=== PATIENT | male | born 1960 | race Caucasian/White ===

== ENCOUNTER → 2018-05-21 10:34 | Outpatient (CLI) | payer OTHER, SELFPAY ==
[2018-05-21 12:10] LABS: Absolute Lymphocyte Count 1.31 X10^3/ul (0.83-4.51); Basophil# 0.02 X10^3/uL; Basophil% 0.6 % (0-1); Eosinophil# 0.12 X10^3/uL; Eosinophils% 3.3 % (0-5); Hematocrit 43.2 % (40-54); Lymphocyte # 1.31 X10^3/ul (4.0); Lymphocyte % 36.1 % (19-41); Mean Corp Hgb Conc 34.7 g/gl (32-36); Mean Corpuscular Hgb 33.6 pg (27.0-32.0); Mean Corpuscular Volume 96.9 fL (80-94); Mean Platelet Vol. 11.2 fl (6.2-12.0); Monocyte# 0.21 X10^3/uL; Monocyte% 5.8 % (0-10); Neutrophil # 1.97 X10^3/uL (2.7-7.7); Neutrophil % 54.2 % (47-70); Platelet Count 159 K/mm3 (150-450); RBC Distribution Width SD 40.7 fl (35.1-43.9); Red Blood Count 4.46 M/mm3 (4.6-6.2); White Blood Count 3.6 K/mm3 (4.4-11.0)
[2018-05-21 12:11] LABS: POSITIVE COUNT NO; POSITIVE DIFFERENTIAL NO; POSITIVE MORPHOLOGY NO
[2018-05-21 12:37] LABS: ALB/GLOB Ratio 1.2 RATIO (0.9-2.4); AST(SGOT) 75 U/L (15-37); Alanine Aminotransfer ALT/SGPT 106 U/L (16-61); Albumin, Serum 3.8 g/dL (3.2-5.0); Alkaline Phosphatase 69 U/L (45-117); Anion Gap 9 (5-15); BUN 14 mg/dL (7-18); BUN/Creat Ratio 16.6 RATIO (10-20); Calcium,Total 8.5 mg/dL (8.5-10.1); Chloride 105 mmol/L (98-107); Cholesterol 208 mg/dL (200); Creatinine, Serum 0.84 mg/dL (0.70-1.30); EST Glomerular Filtration Rate 100 mL/min (>60); Est Glom Filt Rate - Afr Amer 121 mL/min (>60); Globulin 3.3 g/dL (2.2-4.2); Glucose 93 mg/dL (74-106); High Density Lipoprotein 55 mg/dL; PSA,Total - Annual Screen 0.59 ng/mL (0.00-4.00); Potassium 4.1 mmol/L (3.5-5.1); Protein, Total 7.1 g/dL (6.4-8.2); Sodium Level 142 mmol/L (136-145); Triglycerides 245 mg/dL; Very Low Density Lipoprotein 49 mg/dL (5-40)
[2018-05-21 13:14] LABS: Microalbumin,Random Urine < 5.0 mg/L (NO RANGE EST.)
== END ==
PROVIDERS: Family Provider Family Medicine; PCP Family Medicine; Referring Provider Nurse Practitioner Family
DX: Z00.00 Encounter for general adult medical examination without abnormal findings (principal); E78.5 Hyperlipidemia, unspecified; R79.89 Other specified abnormal findings of blood chemistry
CPT/HCPCS: 36415; 80053; 80061; 82043; 84153; 85025; G0103

== ENCOUNTER → 2019-03-29 14:33 | Outpatient (CLI) | payer OTHER, SELFPAY ==
--- NOTE | 2019-03-29 14:35 | CT_ITS ---
STUDY: CT PELVIS WITHOUT CONTRAST REASON FOR EXAM: Male, 58 years old. Sacroiliac joint pain RADIATION DOSAGE (If Supplied By Facility): CTDIvol = ( 28.21 ) mGy, DLP = ( 905.21 ) mGycm TECHNIQUE: Transaxial imaging of the pelvis was performed with oral contrast, and without intravenous administration of contrast material. Multiplanar coronal and sagittal images were reformatted. Individualized dose optimization techniques were used for this CT. COMPARISON: None. FINDINGS: Normal urinary bladder. Normal visualized small intestine. There is moderate stool in the colon. There is diverticulosis without diverticulitis. The appendix appears normal. There is no pelvic fluid. There is no pelvic mass lesion or lymphadenopathy. Normal visualized prostate gland. There is diffuse atherosclerotic calcification of the pelvic arteries. There are small bilateral inguinal hernias containing fat. There is degenerative change in the visualized levels of L4-L5 with a broad disc bulge moderate neural foramina narrowing facet arthropathy mild central stenosis. At L5-S1 there is a minimal broad disc bulge minimal neural foramina narrowing facet arthropathy without significant central stenosis. There is left lateral osteophytosis. There is a similar appearance of the bilateral SI joints with minimal osteophyte formation. There is degenerative change of the bilateral hip joints. There are nonspecific 2 small foci of sclerotic density within the right humeral head measuring up to [address]/Pelvis without IV Contrast IMPRESSION: Degenerative change of the bilateral hip joints. Nonspecific mild degenerative change of the SI joints. Degenerative changes lower lumbar spine Constipation diverticulosis the visualized diverticulitis. Electronically Signed: Charito Ahmadi MD at 15:44 EDT Tel , Service support ,
== END ==
PROVIDERS: Family Provider Family Medicine; PCP Family Medicine; Referring Provider Orthopaedic Surgery; Visit Provider Orthopaedic Surgery
DX: M46.1 Sacroiliitis, not elsewhere classified (principal)
CPT/HCPCS: 72192

== ENCOUNTER → 2019-04-19 14:35 | Outpatient (CLI) | payer OTHER, SELFPAY ==
--- NOTE | 2019-04-19 14:38 | RAD_ITS ---
STUDY: X-RAY - RIGHT WRIST REASON FOR EXAM: Male, 58 years old. Lump on posterior wrist. TECHNIQUE: 3 view(s) of the wrist were obtained. COMPARISON: None. FINDINGS: There is no evidence of fracture or dislocation. There are no significant degenerative changes. There are no radiodense foreign bodies. RAD/Wrist min 3 Views IMPRESSION: Negative radiographs of the right wrist. If there is concern for a soft tissue lesion, consider further evaluation with ultrasound or MRI. Electronically Signed: Ranjan Edgar, at 15:00 EDT Tel , Service support ,
== END ==
PROVIDERS: Family Provider Family Medicine; PCP Family Medicine; Referring Provider Family Medicine; Visit Provider Family Medicine
DX: M25.531 Pain in right wrist (principal)
CPT/HCPCS: 73110

== ENCOUNTER 2019-08-11 15:00 | Outpatient (RCR) | payer OTHER, SELFPAY ==
--- NOTE | 2019-05-17 15:26 | HP.PTEVAL ---
Patient's Visit Information ESPERANZA TIJERINA is a 59 year old M referred to Physical Therapy by ARNEL Ballard with a diagnosis of degenerative of lumbar intervertbral disc,disorder of sacrum,L-S radicular. Date of Evaluation: 05/17/19 Physical Therapist: Joe Magaña, PT, Cert MDT, OCS - Visit Plan Frequency: 2x /Week Duration: 4 Weeks Plan: PT INTERVENTIONS MODLITIES ,DLS ,POSTURAL STRENGTHENING,LE FLEXABLITY - Subjective Findings: This 59 y/o male presents to physical therapy with lumbar pain with radicular sypmtoms. Patient has had right lumbar radiculopathy many years. Patient intially see Dr Rosa did MRI reffered to pain management for 2 epidural injections which helped some. Then seen DR Wh[facility] did Catscan and not canditate for any type of surgery. [facility] recommends PT. Location of pain right SI region to lateral hip.Recommended injection SI which helped parathesia. Patient has a catch otherwise aches. Aggraveting factors bending,lifting walking,extended standing. Alleviating factors ice,walking. Denies parathesai/tingling. Coughing/sneezing -.Bowel/bladder-. Patient sleeping good. Patient pain affects housework tasks and ADL'S. Patient symptoms affects QOL. SOCIAL: single. VOCATION: retired - Pain Right Back Pain Intensity (Out of 10): 6 Pain Intensity Range: 10 - Objective POSTURE:mild foward posture. GAIT: reciprocal pattern. NEURO: denies parathesai/tingling,reflexes L3-4,L4-5,L5-S1 2/3. PALAPTION: tender SI. FLEXABLITY: hams mod tight. LUMBAR ROM: flexion min loss ,extension mod loss ,side glides min loss..pian with extension. MMT: quads/hams/hip/ankle 4/5 - Special Tests L/S Slump test left side: Negative L/S Slump test right side: Negative L/S Left Straight Leg Raise: Negative L/S Right Straight Leg Raise: Negative Lumbar Standing: Flexion - Mechanical Response: No effect Lumbar Standing: Flexion - Symptoms During Testing: Increases Lumbar Standing: Flexion - Symptoms After Testing: No worse Lumbar Standing: Extension - Mechanical Response: No effect Lumbar Standing: Extension - Symptoms During Testing: Abolishes Lumbar Standing: Extension - Symptoms After Testing: No worse Lumbar Standing: Right Side Glides - Mechanical Response: No effect Lumbar Standing: Right Side [place] - Symptoms During Testing: Increases Lumbar Standing: Right Side [place] - Symptoms After Testing: No worse Lumbar Standing: Left Side [place] - Mechanical Response: No effect Lumbar Standing: Left Side [place] - Symptoms During Testing: No effect Lumbar Standing: Left Side [place] - Symptoms After Testing: No effect Lumbar Lying: Flexion - Mechanical Response: No effect Lumbar Lying: Flexion - Symptoms During Testing: No effect Lumbar Lying: Flexion - Symptoms After Testing: No effect Lumbar Lying: Extension - Mechanical Response: No effect Lumbar Lying: Extension - Symptoms During Testing: Increases Lumbar Lying: Extension - Symptoms After Testing: No worse - Goals Goal 1:: Patient to be Independant with HEP Goal Time Frame: 4-6 Weeks Goal 2:: Patient to improve posture for function. Goal Time Frame: 4-6 Weeks Goal 3:: Patient to decrease lumbar pain by 50% or > to improve function. Goal Time Frame: 4-6 Weeks Goal 4:: Patient to improve lumbar ROM for function of recovery Goal Time Frame: 4-6 Weeks Goal 5:: Patient to improve Back owestry score by 5 points > to improve QOL. Goal Time Frame: 4-6 Weeks - Rehabilitation Potential Physical Therapy Diagnosis: This patient has lumbar pain SI joint pain better after injections pain with lumbar motion ,decrease lumbar ROM ,affects ability with ADL'S and housework tasks. Rehabilitation Potential: Good - Anticipated Interventions Patient/Client Instruction: Educate patient on: Condition, Plan of Care For the Purpose of:: To decrease pain, To increase ROM, To improve muscle performance and motor function, To increase tolerance to activity/condition/position, To improve ability of physical actions for home/community/work/leisure, To improve health of tissue, To decrease soft tissue restriction, To increase flexibility/ROM, To improve ability to perform tasks related to life management Therapeutic Exercise to Include: Strength training, Body mechanics, Postural training, Flexibilty training, Dynamic Lumbar Stabilization For the Purpose of:: To decrease pain, To increase ROM, To improve muscle performance and motor function, To increase tolerance to activity/condition/position, To improve ability of physical actions for home/community/work/leisure, To improve health of tissue, To decrease soft tissue restriction, To improve ability to perform tasks related to life management TENS: Yes IF ES: Yes Cryotherapy (ice pack, ice massage): Yes Thermo therapy (hot pack): Yes Ultrasound (thermal/non thermal): Yes For the Purpose of:: To decrease pain, To increase ROM, To improve nutrient delivery to tissue, To increase oxygenation perfusion, To improve health of tissue, To decrease soft tissue restriction Thank you for the opportunity to evaluate your patient. For Medicare and Medicare HMO plans, please review the plan of care and approve it. It will need to be FAXED BACK to us at [phone] for Medicare purposes. For Medicare only, by signing this I certify the plan of care. Please let me know if there are questions or concerns regarding this plan of care. Physician Signature: Date:
--- NOTE | 2019-08-11 15:31 | HP.PTDCSUM ---
HP - PT D/C Summary It has been my pleasure to treat ESPERANZA TIJERINA under orders from Macey Reina NP-C, for the diagnosis of degenerative of lumbar intervertbral disc,disorder of sacrum,L-S radicular for a total of 22 visit(s). Discharge Date: 08/11/19 Please see the following information for a summary of their discharge status. - Subjective Subjective: Doing well .. ready for d/c. Cotx to get occassional catch - Pain Right Back Pain Intensity (Out of 10): 0 - Overall Improvement % Improvement: 60 - Objective Objective/Function: POSTURE: mild foward posture\. GAIT: reciprocal pattern. MMT: quads/hams /hip 4/5. LUMBAR ROM: min loss flexion,extension min loss - Goals Goal 1:: Patient to be Independant with HEP Goal Progress: Goal Met Goal 2:: Patient to improve posture for function. Goal Progress: Goal Met Goal 3:: Patient to decrease lumbar pain by 50% or > to improve function. Goal Progress: Goal Met Goal 4:: Patient to improve lumbar ROM for function of recovery Goal Progress: Goal Met Goal 5:: Patient to improve Back owestry score by 5 points > to improve QOL. Goal Progress: Goal Met - Plan Plan: D/C TO GYM - D/C Information Discharge Comments: HEP If there are questions or concerns regarding this patient's physical therapy, please feel free to call me at [phone]. Thank you for the referral of this patient. Sincerely, Joe Magaña, PT, Cert MDT, OCS
== END 2019-08-11 19:00 | disposition home or self-care (01) ==
LOC: PT 15:00
PROVIDERS: Family Provider Family Medicine; PCP Family Medicine; Referring Provider Nurse Practitioner Family; Visit Provider Nurse Practitioner Family
DX: M51.37 Other intervertebral disc degeneration, lumbosacral region (principal); M47.817 Spondylosis without myelopathy or radiculopathy, lumbosacral region; M54.17 Radiculopathy, lumbosacral region; M48.07 Spinal stenosis, lumbosacral region; M46.96 Unspecified inflammatory spondylopathy, lumbar region; M53.3 Sacrococcygeal disorders, not elsewhere classified
CPT/HCPCS: 97014; 97110; 97162; G0283

== ENCOUNTER 2020-04-14 17:41 | Emergency (ER) | payer OTHER, SELFPAY ==
[2020-04-14 17:43] VITALS: BP 175/105; PULSE 72; RESP 16; TEMP 36.4; O2SAT 99; BMI 26.4
[2020-04-14 18:28] LABS: Anion Gap 8 (5-15); BUN 10 mg/dL (7-18); BUN/Creat Ratio 11.8 RATIO (10-20); Calcium,Total 9.3 mg/dL (8.5-10.1); Chloride 106 mmol/L (98-107); Creatinine, Serum 0.85 mg/dL (0.70-1.30); EST Glomerular Filtration Rate 98 mL/min (>60); Est Glom Filt Rate - Afr Amer 119 mL/min (>60); Estimated Creatinine Clearance 113.22 ml/min; Glucose 106 mg/dL (74-106); Potassium 3.9 mmol/L (3.5-5.1); Sodium Level 139 mmol/L (136-145)
[2020-04-14 18:34] VITALS: BP 166/109; PULSE 77; RESP 16
[2020-04-14 19:16] VITALS: BP 161/108
--- NOTE | 2020-04-14 19:16 | ED.DEP ---
ED Disposition - Plan for ED Patient: Instructions: ED Hypertension New Begin Treatment Prescriptions: Lisinopril 20 mg PO DAILY #30 tablet Referrals: Faraz Garibay MD [Primary Care Provider] -
--- NOTE | 2020-04-14 19:23 | ED.VISSUMM ---
- ER Visit Summary Date of Service: 04/14/20 Chief Complaint: Elevated blood pressure History of Present Illness: The patient is a 59 M presenting with elevated blood pressure. Patient states that he was not feeling well yesterday and took his blood pressure and it was 173/112. He repeated the blood pressure today and it was 169/117. He has a mild headache. He states this is not the worst headache of his life. He denies chest pain or shortness of breath. He states he used to take lisinopril and stopped this about 6 years ago after diet and exercise. He does not regularly check his blood pressure. Physical Examination: Vitals are stable. Blood pressure 175/105. Patient is afebrile. Alert no acute distress. HEENT exam is unremarkable. Neck is supple. Lungs are clear and equal bilaterally. Heart is regular rate and rhythm. Abdomen is soft nontender nondistended. Extremities are unremarkable. Skin is warm and dry. No focal neurologic deficit. Remainder of exam is unremarkable. Emergency Department Course and Treatment: Basic metabolic panel is unremarkable. Repeat blood pressure 166/109. Discussed with Dr. Matthews covering for Dr. Garibay. Patient will be started on lisinopril 20 mg daily. Advised to follow-up with Dr. Garibay for blood pressure recheck. Advised return to ED for worsening complaints. Disposition: Discharge home Impression: Hypertension This note was generated with [employer] dictation software. It may contain incorrect words, spelling, and punctuation that were not noted in review of the chart prior to signing ED Disposition - Plan for ED Patient: Instructions: ED Hypertension New Begin Treatment Prescriptions: Lisinopril 20 mg PO DAILY #30 tab Prescription Printed Referrals: Faraz Garibay MD [Primary Care Provider] -
[2020-04-14] MEDS: Lisinopril 20 MG Tablet PO (19:26)
== END 2020-04-14 19:27 | disposition home or self-care (01) ==
LOC: ED 18:31
PROVIDERS: Emergency Provider Emergency Medicine; PCP Family Medicine
DX: I10 Essential (primary) hypertension (principal); K21.9 Gastro-esophageal reflux disease without esophagitis
CPT/HCPCS: 80048; 99284; A4216

== ENCOUNTER → 2020-08-06 14:52 | Outpatient (CLI) | payer OTHER, SELFPAY ==
[2020-08-06 18:29] LABS: Anion Gap 10 (5-15); BUN 17 mg/dL (7-18); BUN/Creat Ratio 17.1 RATIO (10-20); Calcium,Total 9.3 mg/dL (8.5-10.1); Chloride 103 mmol/L (98-107); Cholesterol 206 mg/dL (200); EST Glomerular Filtration Rate 82 mL/min (>60); Est Glom Filt Rate - Afr Amer 99 mL/min (>60); Glucose 84 mg/dL (74-106); High Density Lipoprotein 60 mg/dL; PSA,Total - Annual Screen 0.43 ng/mL (0.00-4.00); Potassium 4.3 mmol/L (3.5-5.1); Sodium Level 138 mmol/L (136-145); Triglycerides 153 mg/dL; Uric Acid 5.2 mg/dL (3.5-7.2); Very Low Density Lipoprotein 31 mg/dL (5-40)
== END ==
PROVIDERS: PCP Family Medicine; Referring Provider Family Medicine; Visit Provider Family Medicine
DX: I10 Essential (primary) hypertension (principal); M10.9 Gout, unspecified; Z12.5 Encounter for screening for malignant neoplasm of prostate
CPT/HCPCS: 36415; 80048; 80061; 84153; 84550; G0103

== ENCOUNTER 2020-09-09 21:02 | Emergency (ER) | payer OTHER, SELFPAY ==
[2020-09-09] VITALS (8 sets, daily range): BP systolic 152–234; BP diastolic 106–162; PULSE 87–114; RESP 12–28; TEMP 36; O2SAT 84–99; BMI 26.9
--- NOTE | 2020-09-09 21:10 | ED.RN ---
RN CALLED FOR EKG, NO OLD EKGS IN MUSE
--- NOTE | 2020-09-09 22:08 | RAD_ITS ---
We are attempting to reach an attending provider to discuss findings. An addendum with communication details will be sent when the communication is complete. SOB AND CHEST PAIN, PT STATES Tquot;IT FEELS LIKE WHEN I HAD A COLLAPSED LUNG.Tquot;- HX RIGHT LUNG COLLAPSE IN THE PAST, HTN EXAMINATION/TECHNIQUE: XR Chest 2 Views: COMPARISON: February 02, 2017 FINDINGS: LINES/DEVICES: None. LUNGS: Large right-sided pneumothorax with complete collapse of the lower lobe and in complete collapse of the upper lobe. The left lung is clear. MEDIASTINUM AND CARDIOVASCULAR STRUCTURES: Cardiac silhouette not enlarged. Central airways and mediastinal contour are unremarkable. BONES AND SOFT TISSUES: Unremarkable. RAD/Chest PA and Lateral IMPRESSION: Large right-sided pneumothorax as discussed at 2223 Reported and signed by: Charito Morales DO Electronically Signed: Charito Morales DO at 22:22 EST Tel , Service support ,
--- NOTE | 2020-09-09 22:46 | ED.VIS.GEN ---
History of Present Illness Chief Complaint: Shortness of Breath Informant: Patient Onset: Today Narrative: Patient is a 60-year-old male with history of spontaneous pneumothorax presenting with sudden onset of right-sided chest discomfort and shortness of breath. Patient dates he was watching football around 3 PM when he suddenly had the symptoms. It felt like the last time he had a pneumothorax. Patient describes chest pain is right-sided and sharp. Is worse when he tries to take a deep breath. His symptoms persisted so he decided to come to emergency room to be evaluated further. He states he is otherwise been feeling well. He has no other complaints at this time. Past Medical History - Allergies and Home Meds Allergies/Adverse Reactions: Allergies No Known Allergies Allergy (Verified 09/09/20 21:06) Primary Care Physician: Faraz Garibay MD [Primary Care Provider] - Past Medical History: - - Hypertension, GERD, history of pneumothorax Surgical History: noncontributory Smoking Status: Never smoker Alcohol: Heavy Review of Systems General: Denies: Chills, Fever, Sweats Eyes: Denies: Visual changes - bilaterally, Diplopia ENT: Denies: Rhinorrhea, Sore throat Cardiovascular: Reports: Chest pain - Right-sided. Denies: Palpitations Respiratory: Reports: Dyspnea. Denies: Cough, Dyspnea on exertion Gastrointestinal: Denies: Abdominal pain, Nausea, Vomiting, Diarrhea, Melena, Hematochezia Genitourinary: Denies: Dysuria, Hematuria, Frequency Musculoskeletal: Denies: Back pain, Extremity Pain Skin: Denies: Rash, Wounds Neurological: Denies: Headache, Weakness, Numbness Physical Exam Vital Signs/Narrative: Vital Signs Temp Pulse Resp BP Pulse Ox 09/09/20 21:04 96.8 F L 95 18 185/125 H 93 Inital Vital Signs reviewed: Yes General: Well nourished, Well developed, No Acute Distress Head: Normocephalic, Atraumatic Eyes: Perrl, EOMI ENT: Moist mucous membranes, No rhinorrhea Neck: Supple, Nontender Cardiovascular: Regular rate, Regular rhythm, No murmurs Respiratory: No distress, Chest nontender, Diminished - Right-sided Abdomen: Soft, Nontender, Nondistended, Normal bowel sounds Back: Nontender, Normal Inspection Extremities: Nontender, No edema Skin: Normal color, No rash Neurological: Alert, Oriented x3, Cranial nerves II-XII grossly intact, Normal Strength, Normal Sensation Psychological: Normal affect, Normal Mood Diagnostic/Tx/Re-eval Chest X-Ray - ED: 2 View, Read by ED Physician, - - Right pneumothorax Clinical Impression(s) from Imaging Studies Chest X-Ray 09/09/20 22:08 IMPRESSION: Large right-sided pneumothorax as discussed at 2223 Reported and signed by: Charito Morales DO Electronically Signed: Charito Morales DO at 22:22 EST Tel , Service support , ADDENDUM: 09/09/20 2234 IMPRESSION: Large right-sided pneumothorax as discussed at 2223 Reported and signed by: Charito Morales DO N.B. : The above information has been verbally conveyed by Charito Morales DO to Jocelyn KeonDO bassam, on 09/09/2020 22:28:01 (ET). Electronically Signed: Charito Morales DO at 22:22 EST Tel , Service support , Chest X-Ray 09/09/20 23:37 IMPRESSION: Interval placement of right-sided chest tube with reexpansion of the right lung. No definite pneumothorax is visualized on this study. There is atelectasis seen within the right lung base and the right midlung at 0000 Reported and signed by: Charito Morales DO Electronically Signed: Charito Morales DO at 23:59 EST Tel , Service support , - Medical Decision Making Evaluated for sudden onset of pleuritic chest pain on the right as well as associated shortness of breath. Chest x-ray shows pneumothorax. This appears to be spontaneous pneumothorax is uncomplicated. Patient is not significantly hypoxic. He is not have any tension physiology. Pigtail chest tube is placed. See procedure note. Patient tolerated this well. He is given oxycodone the ER for pain control afterwards. He is ambulated without any hypoxia and does feel improved with his breathing. Did discuss the case with pulmonology on-call, Dr. Gregorio, who will come to see him in the office but likely patient will need to return to the emergency room on Thursday for removal. Patient is agreeable with this. He is also started to follow-up with his primary care doctor. He is given a course of oxycodone for pain control at home. Patient is counseled on signs and symptoms requiring return to the emergency room. Patient verbalizes agreement and understand this plan. Patient discharged home in stable and improved condition. Procedures Procedure(s): Chest tube placement. Informed consent obtained. Patient preoxygenated and placed on continuous telemetry, oximetry and end-tidal CO2 monitoring. Procedural sedation performed with ketamine, 1 mg/kg. This is slow push over 2 minutes. Patient did have a mild episode of apnea with a slight desaturation to 88% but quickly resolved with jaw thrust. Once oxygenation stabilized, pneumo dart kit used to place 8 Martiniquais chest tube. Fifth intercostal space mid axillary line using anatomical landmarks. Reanesthetized with lidocaine. Small incision with scalpel made and then needle introduced into the pleura with negative pressure and syringe. Once air was aspirated catheter was placed over the needle. Needle removed and flutter valve connected to catheter. Condensation noted in the tubing and patient had improved right-sided breath sounds. Catheter sutured to chest. Repeat chest x-ray shows reinflation of the lungs with proper placement of the catheter. Patient tolerated procedure well without any immediate complications. ED Disposition - Plan for ED Patient: Disposition: Home or Assisted Living Diagnosis: Spontaneous pneumothorax Instructions: ED Pneumothorax, Spontaneous, Chest Tube Adult Prescriptions: Oxycodone HCl/Acetaminophen [Percocet 5/325] 1 tab PO Q6H PRN PRN 4 Days #15 tab PRN Reason: Pain Prescription Printed Referrals: Faraz Garibay MD [Primary Care Provider] - Carlitos Gregorio MD [STAFF PHYSICIAN] - Additional Instructions: If you cannot be seen by your primary care doctor/lung doctor by Thursday to have the chest tube removed, please return the emergency room and we will remove it for you. Please return the emergency room if you develop worsening pain or difficulty breathing.
--- NOTE | 2020-09-09 23:07 | EKG12_ITS ---
Test Reason : SOB/CP Blood Pressure : / mmHG Vent. Rate : 092 BPM Atrial Rate : 092 BPM P-R Int : 138 ms QRS Dur : 084 ms QT Int : 356 ms P-R-T Axes : 095 062 089 degrees QTc Int : 440 ms Normal sinus rhythm Normal ECG Confirmed by TAVON FONTANA, ALKA ([id number]), story editor EDILMA DARLING ([id number]) on 09/12/2020 11:01:34 AM Referred By: Confirmed By:ALKA MONTES DE OCA MD
[2020-09-09] MEDS: Ondansetron 4 MG/2 ML Vial IV (23:10)
[2020-09-09] MEDS: Ketamine HCl 500 MG/5 ML Vial 98 MG IV (23:14)
--- NOTE | 2020-09-09 23:37 | RAD_ITS ---
s/p rt sided chest tubehx of pneumothorax EXAMINATION/TECHNIQUE: XR Chest 1 View: COMPARISON: September 09, 2020 FINDINGS: LINES/DEVICES: There is been interval placement of a right-sided chest tube with the tip overlying the right medial eighth posterior rib. l LUNGS: Interval improvement of pneumothorax. I do not see a significant persistent pneumothorax. There is atelectasis in the right lung base and right midlung. The left lung is clear. No pneumothorax. MEDIASTINUM AND CARDIOVASCULAR STRUCTURES: Cardiac silhouette not enlarged. Central airways and mediastinal contour are unremarkable. BONES AND SOFT TISSUES: Unremarkable. RAD/Chest 1 View (Portable) IMPRESSION: Interval placement of right-sided chest tube with reexpansion of the right lung. No definite pneumothorax is visualized on this study. There is atelectasis seen within the right lung base and the right midlung at 0000 Reported and signed by: Charito Morales DO Electronically Signed: Charito Morales DO at 23:59 EST Tel , Service support ,
[2020-09-10 00:12] VITALS: BP 151/110; PULSE 90; RESP 18; O2SAT 96
[2020-09-10] MEDS: oxyCODONE 5 MG Tablet PO (00:12)
[2020-09-10 00:16] VITALS: O2SAT 94
[2020-09-10 00:41] VITALS: PULSE 86; RESP 20; O2SAT 96
== END 2020-09-10 01:09 | disposition home or self-care (01) ==
PROVIDERS: Emergency Provider Emergency Medicine; PCP Family Medicine
DX: J93.83 Other pneumothorax (principal); I10 Essential (primary) hypertension; K21.9 Gastro-esophageal reflux disease without esophagitis; Z79.899 Other long term (current) drug therapy
CPT/HCPCS: 32551; 71045; 71046; 93005; 96374; 99152; 99284; J7030; A4216; J2405

== ENCOUNTER 2020-09-10 12:41 | Emergency (ER) | payer OTHER, SELFPAY ==
[2020-09-09 21:04] VITALS: BMI 26.9
[2020-09-10 12:42] VITALS: BP 149/93; PULSE 74; RESP 18; TEMP 35.8; O2SAT 97; BMI 27.5
--- NOTE | 2020-09-10 13:10 | RAD_ITS ---
STUDY: X-RAY CHEST REASON FOR EXAM: Male, 60 years old. Chest pain/pressure TECHNIQUE: 2 AP portable views, inspiration and expiration COMPARISON: 09/09/2020 FINDINGS: The previously noted small caliber right-sided chest tube has been since the previous study. On the expiration view, there is recurrence of a right pneumothorax. There is approximately 2.5 cm of space between the superior edge of the lung in the peritoneal surface there is no mediastinal shift. The pneumothorax is smaller on the inspiration view measuring 1.5 cm between the superior edge of the lung and the pleural surface The lungs are otherwise clear and expanded. There is no demonstrated pleural abnormality. Normal size heart. Normal mediastinum and juan antonio. Normal visualized pulmonary arteries. Normal visualized aortic arch and descending thoracic aorta. There are diffuse degenerative changes of the visualized thoracic spine. Normal visualized ribs, clavicles, and shoulders. There is no demonstrated abnormality of the visualized soft tissue structures of the upper abdomen. RAD/Chest Insp/Exp 2 View IMPRESSION: Recurrence of the small right pneumothorax since the previous study after chest tube removal. No mediastinal shift. Aside from the pneumothorax, lung dumont are clear without evidence of a superimposed process N.B. : The above information has been verbally conveyed by Jg Vogt MD to Abram Dumont MD, on 09/10/2020 13:25:24 (ET). Electronically Signed: Jg Vogt MD at 13:28 EST , Service support ,
[2020-09-10 15:29] VITALS: BP 153/97; PULSE 73; RESP 17; O2SAT 97
[2020-09-10] MEDS: Lidocaine 1% (20 ml mdv) 20 ML Vial INFILT (15:33)
--- NOTE | 2020-09-10 15:41 | ED.DCSUM_ITS ---
History of Present Illness Chief Complaint: Other, Pain/Inj Detail of Chief Complaint: Thoracostomy tube/Heimlich valve fell out Informant: Patient Onset: Hours Context: Sudden Onset Quality: Not applicable Location: Not applicable Current Severity: - - Unknown Maximum Severity: - - Unknown Worsened by: Unknown Relieved by: Nothing Associated Symptoms: No shortness of breath or chest pain Narrative: Patient 60-year-old male who was seen last evening for spontaneous pneumothorax. Patient states this is his second spontaneous pneumothorax. He was told he has a bleb which caused his initial spontaneous pneumothorax. He presents because t he tube fell out. He has no other complaints. He was referred to pulmonology. He was not referred to cardiothoracic surgery Prior similar symptoms: Yes Recent Illness/Hospitalization: Yes - Past Medical History (1) Spontaneous pneumothorax Status: Acute Past Medical History - Allergies and Home Meds Allergies/Adverse Reactions: Allergies No Known Allergies Allergy (Verified 09/10/20 13:10) Primary Care Physician: Faraz Garibay MD [Primary Care Provider] - Harjinder Fritz MD [NON-STAFF] - 3-5 Days Prior records reviewed: Yes Surgical History: noncontributory Lives: Spouse/ Significant Other Smoking Status: Never smoker Alcohol: None Drugs: None Review of Systems General: Denies: Chills, Fever, Malaise, Subjective, Sweats Cardiovascular: Denies: Chest pain, Palpitations, Heart racing Respiratory: Denies: Dyspnea, Cough, Sputum, Dyspnea on exertion Gastrointestinal: Denies: Nausea, Vomiting Musculoskeletal: Denies: Myalgias, Arthralgias Skin: Denies: Rash, Wounds Hematologic: Denies: Easy bruising, Easy bleeding Allergy: Denies: Uticaria, Swelling of the mouth, Swelling of the tongue Physical Exam Vital Signs/Narrative: Vital Signs Temp Pulse Resp BP Pulse Ox 09/10/20 15:29 73 17 153/97 H 97 09/10/20 12:42 96.5 F L 74 18 149/93 H 97 Inital Vital Signs reviewed: Yes General: Well nourished, Well developed, No Acute Distress Head: Normocephalic, Atraumatic Eyes: Perrl, EOMI. Negative for: Pale conjunctiva, Scleral icterus ENT: Moist mucous membranes Neck: Supple, Nontender, No lymphadenopathy, No JVD, - - He has midline. There is no deviation. There is no inspiratory expiratory stridor. There is no JVD. Cardiovascular: Regular rate, Regular rhythm, No murmurs, Normal S1, Normal S2 Respiratory: No distress, CTA bilaterally, Chest tenderness - Tenderness over insertion site and there is no subcutaneous air or crepitus. Negative for: Chest nontender Abdomen: Soft, Nontender, Nondistended Extremities: Nontender, No edema Skin: Normal color, No rash Neurological: Alert, Oriented x3, Cranial nerves II-XII grossly intact, Normal Strength, Normal Sensation Psychological: Normal affect Diagnostic/Tx/Re-eval Chest X-Ray - ED: Read by ED Physician, - - Inspiratory expiratory film reveals a apical abscess that was not noted after placement of thoracostomy tube last evening. Chest x-ray after placement of the thoracostomy tube reveals expansion and r esolution of pneumothorax however 80% of the tube is extrapleural and only 20% of the tube is intrapleural. Concerned this may dislodge with movement since patient is very muscular. Chest x-ray after placement of second thoracostomy tube reveals the tube is in proper position and lung is expanded. 09/10/20 13:10 Chest Insp/Exp 2 View [RAD] Routine 09/10/20 15:55 Chest 1 View (Portable) [RAD] Stat 09/10/20 17:27 Chest 1 View (Portable) [RAD] Stat - Medical Decision Making Inspiratory expiratory film was obtained. Patient does have a small apical pneumothorax which was not noted after tube was placed last evening. Since this has reaccumulated with the tube being out for only 3060 minutes will reinsert thoracostomy tube with Heimlich valve. Patient understands risk benefits and necessity of procedure/tube. Procedures Procedure(s): Patient was prepped a sterile manner. There was Nestabs 1% lidocaine for local infiltration. Small and incision was made with 11 blade. Using the contents of the kit a thoracostomy tube was placed anteriorly between the lateral to midclavicular line on the right. Air was aspirated without difficulty. The tube was placed without difficulty and sutured in place. Post procedure x-ray is pending. Chest x-ray reveals only 20% of the tube is in the pleural cavity. There is expansion of the lung with no evidence of residual pneumothorax. However concerned this may become dislodged. Patient was informed of this and consented verbally for repeat thoracostomy tube. Anterior approach was undertaken midclavicular line third fourth intercostal space. Patient was prepped draped sterile manner. The area was Nestabs. Small mukul in the skin was made using 11 blade. Tube was placed without difficulty. Chest x-ray is obtained to confirm proper position. ED Disposition - Plan for ED Patient: Disposition: Home or Assisted Living Diagnosis: Recurrent spontaneous pneumothorax Referrals: Faraz Garibay MD [Primary Care Provider] - Harjinder Fritz MD [NON-STAFF] - 3-5 Days
--- NOTE | 2020-09-10 15:55 | RAD_ITS ---
STUDY: X-RAY CHEST REASON FOR EXAM: Male, 60 years old. CHEST TUBE PLACEMENT TECHNIQUE: Single AP portable view of the chest. COMPARISON: 1:07 PM. FINDINGS: Right-sided chest tube terminates in the right lateral chest wall at the level of the fourth costal interspace. Right lung appears fully expanded on this portable upright view. No demonstrated pleural effusion or pneumothorax. Lung dumont are clear. Normal size heart. Normal mediastinum and juan antonio. Normal visualized pulmonary arteries. Normal visualized aortic arch and descending thoracic aorta. Normal visualized thoracic spine. Normal visualized ribs, clavicles, and shoulders. There is no demonstrated abnormality of the visualized soft tissue structures of the upper abdomen. RAD/Chest 1 View (Portable) IMPRESSION: No demonstrated pneumothorax status post insertion of right chest tube. Electronically Signed: Erin Perez MD at 16:19 EST Tel , Service support ,
[2020-09-10 17:11] VITALS: RESP 18
[2020-09-10 17:21] VITALS: BP 145/101; PULSE 73; RESP 18; O2SAT 98
--- NOTE | 2020-09-10 17:27 | RAD_ITS ---
STUDY: X-RAY CHEST REASON FOR EXAM: Male, 60 years old. CHEST TUBE PLACEMENT TECHNIQUE: Single AP portable view of the chest. COMPARISON: Earlier today FINDINGS: The previously noted small caliber chest tube has been adjusted and its position. No pneumothorax is noted. The lungs are clear and expanded. There is no demonstrated pleural abnormality. Normal size heart. Normal mediastinum and juan antonio. Normal visualized pulmonary arteries. Normal visualized aortic arch and descending thoracic aorta. There are diffuse degenerative changes of the visualized thoracic spine. Normal visualized ribs, clavicles, and shoulders. There is no demonstrated abnormality of the visualized soft tissue structures of the upper abdomen. RAD/Chest 1 View (Portable) IMPRESSION: No demonstrated right pneumothorax after repositioning of the small-caliber right-sided chest tube. No acute pulmonary process Electronically Signed: Jg Vogt MD at 17:44 EST , Service support ,
--- NOTE | 2020-09-10 17:36 | ED.VISSUMM ---
- ER Visit Summary Date of Service: 09/10/20 Chief Complaint: [] History of Present Illness: The patient is a 60 M [] Physical Examination: [] Test Results: [] Emergency Department Course and Treatment: [] Treatment Plan: [] Disposition: [] Impression: [] This note was generated with [employer] software. It may contain incorrect words, spelling, and punctuation that were not noted in review of the chart prior to signing ED Disposition - Plan for ED Patient: Disposition: Home or Assisted Living Diagnosis: Recurrent spontaneous pneumothorax Instructions: ED Pneumothorax, Spontaneous Referrals: Faraz Garibay MD [Primary Care Provider] - Harjinder Fritz MD [NON-STAFF] - 3-5 Days
[2020-09-10] MEDS: oxyCODONE 5 MG Tablet PO (17:37)
== END 2020-09-10 17:53 | disposition home or self-care (01) ==
PROVIDERS: Emergency Provider Emergency Medicine; PCP Family Medicine
DX: J93.83 Other pneumothorax (principal); Z46.82 Encounter for fitting and adjustment of non-vascular catheter; Z79.899 Other long term (current) drug therapy
CPT/HCPCS: 32551; 71045; 71046; 99283

== ENCOUNTER → 2020-09-20 11:27 | Outpatient (CLI) | payer OTHER, SELFPAY ==
[2020-09-10 12:42] VITALS: BMI 27.5
--- NOTE | 2020-09-20 11:29 | CT_ITS ---
STUDY: CT CHEST WITHOUT CONTRAST REASON FOR EXAM: Male, 60 years old. SPONTANEOUS PNEUMO 2 WEEKS AGO, HX OF SAME 8 YRS AGO RADIATION DOSAGE (If Supplied By Facility): CTDIvol = ( 13.50 ) mGy, DLP = ( 539.59 ) mGycm TECHNIQUE: Transaxial imaging was performed without the administration of intravenous contrast material. Multiplanar coronal and sagittal images were reformatted. Individualized dose optimization techniques were used for this CT. COMPARISON: Comparison is made with prior CT scan of thorax dated 03/02/2013. FINDINGS: Small benign-appearing bilateral axillary lymph nodes. The lungs are normal. Minimal residual right apical pneumothorax. This extends into the lateral aspect of the right upper hemithorax. Minimal linear atelectasis and/or scarring in the posterior medial segment of the right lower lobe. There are calcifications of the coronary arteries. There are multiple small lymph nodes within the mediastinum, which are normal in size and morphology most compatible with reactive lymph hyperplasia. Normal hilar regions. Normal unenhanced pulmonary arteries. Normal aorta arch and descending thoracic aorta. There are degenerative changes of the thoracic spine. There is no demonstrated abnormality of the visualized upper abdomen. CT/Chest without Contrast IMPRESSION: Minimal residual right apical pneumothorax extending to the lateral aspect of the right upper hemithorax. Electronically Signed: Zeus Nguyen MD at 12:15 EST , Service support ,
== END ==
PROVIDERS: PCP Family Medicine; Referring Provider Internal Medicine Pulmonary Disease; Visit Provider Internal Medicine Pulmonary Disease
DX: J93.11 Primary spontaneous pneumothorax (principal)
CPT/HCPCS: 71250

== ENCOUNTER → 2021-08-07 11:19 | Outpatient (CLI) | payer OTHER, SELFPAY ==
[2021-08-07 15:24] LABS: ALB/GLOB Ratio 1.1 RATIO (0.9-2.4); AST(SGOT) 52 U/L (15-37); Alanine Aminotransfer ALT/SGPT 89 U/L (16-61); Albumin, Serum 4.1 g/dL (3.2-5.0); Alkaline Phosphatase 71 U/L (45-117); Anion Gap 8 (5-15); BUN 25 mg/dL (7-18); BUN/Creat Ratio 22.3 RATIO (10-20); Calcium,Total 9.7 mg/dL (8.5-10.1); Chloride 104 mmol/L (98-107); Cholesterol 234 mg/dL (200); Creatinine, Serum 1.12 mg/dL (0.70-1.30); EST Glomerular Filtration Rate 71 mL/min (>60); Est Glom Filt Rate - Afr Amer 86 mL/min (>60); Globulin 3.9 g/dL (2.2-4.2); Glucose 87 mg/dL (74-106); High Density Lipoprotein 52 mg/dL; PSA,Total - Annual Screen 0.44 ng/mL (0.00-4.00); Potassium 4.7 mmol/L (3.5-5.1); Sodium Level 137 mmol/L (136-145); Triglycerides 144 mg/dL; Uric Acid 8.1 mg/dL (3.5-7.2); Very Low Density Lipoprotein 29 mg/dL (5-40)
== END ==
PROVIDERS: PCP Family Medicine; Referring Provider Family Medicine; Visit Provider Family Medicine
DX: I10 Essential (primary) hypertension (principal); E78.5 Hyperlipidemia, unspecified; M10.9 Gout, unspecified; Z12.5 Encounter for screening for malignant neoplasm of prostate
CPT/HCPCS: 36415; 80053; 80061; 84153; 84550; G0103

== ENCOUNTER → 2022-04-09 | Outpatient (CLI) | payer OTHER, SELFPAY ==
[2022-04-09 12:50] LABS: ALB/GLOB Ratio 1.1 RATIO (0.9-2.4); AST(SGOT) 56 U/L (15-37); Alanine Aminotransfer ALT/SGPT 80 U/L (16-61); Albumin, Serum 3.9 g/dL (3.2-5.0); Alkaline Phosphatase 73 U/L (45-117); Anion Gap 6 (5-15); BUN 19 mg/dL (7-18); BUN/Creat Ratio 18.4 RATIO (10-20); Calcium,Total 8.9 mg/dL (8.5-10.1); Chloride 105 mmol/L (98-107); Cholesterol 210 mg/dL (200); Creatinine, Serum 1.03 mg/dL (0.70-1.30); EST Glomerular Filtration Rate 78 mL/min (>60); Est Glom Filt Rate - Afr Amer 94 mL/min (>60); Globulin 3.5 g/dL (2.2-4.2); Glucose 100 mg/dL (74-106); High Density Lipoprotein 54 mg/dL; Potassium 4.3 mmol/L (3.5-5.1); Protein, Total 7.4 g/dL (6.4-8.2); Sodium Level 137 mmol/L (136-145); Triglycerides 169 mg/dL; Uric Acid 5.2 mg/dL (3.5-7.2); Very Low Density Lipoprotein 34 mg/dL (5-40)
== END | disposition home or self-care (01) ==
LOC: MTLAB 10:19
PROVIDERS: PCP Family Medicine; Referring Provider Family Medicine; Visit Provider Family Medicine
DX: I10 Essential (primary) hypertension (principal); R79.89 Other specified abnormal findings of blood chemistry
CPT/HCPCS: 36415; 80053; 80061; 84550

== ENCOUNTER → 2022-04-17 | Outpatient (CLI) | payer OTHER, SELFPAY ==
--- NOTE | 2022-04-17 07:51 | US_ITS ---
STUDY: ABDOMINAL ULTRASOUND - ELASTOGRAPHY REASON FOR VISIT: Male, 61 years old. Fatty infiltration of the liver. TECHNIQUE: Liver stiffness measurements were obtained on a [employer] RS 85 ultrasound machine using a CA 1-7 probe following the SRU guidelines. 3 measurements were obtained using a 2-D-SWE method. The IQR/M was 17% suggesting a quality data set. TECHNICAL QUALITY: Adequate. COMPARISON: Comparison is made with prior study done earlier today. FINDINGS: Liver: Mild hepatomegaly and fatty infiltration of the liver. Median liver stiffness measured 8.8 kPa. US/Elastography Parenchyma/Organ IMPRESSION: Liver stiffness measures 8.8 kPa compatible with F2-F3 (Mild to moderate liver fibrosis) Metavir score. Electronically Signed: Zeus Nguyen MD at 8:57 EDT ,
--- NOTE | 2022-04-17 07:51 | US_ITS ---
STUDY: ABDOMINAL ULTRASOUND - RIGHT UPPER QUADRANT REASON FOR VISIT: Male, 61 years old FATTY LIVER TECHNIQUE: Ultrasound evaluation of the right upper quadrant was performed with real-time and static santa-scale imaging. TECHNICAL QUALITY: Adequate. COMPARISON: None. FINDINGS: Liver: The liver is mildly enlarged and measures 17.8 cm. There is increased echogenicity consistent with fatty infiltration. The bile ducts are within normal limits. There is hepatic color flow. The direction of portal flow is hepatopetal. There is no demonstrated mass lesion. Gallbladder: Normal distended gallbladder. The gallbladder wall measures 2.0 mm. There is a negative sonographic Campos''s sign. There is no pericholecystic fluid. There are no gallstones. Common Bile Duct (C.B.D.): The common bile duct measures 4.0 mm. Pancreas: There is nonvisualization of the pancreas due to overlying bowel gas. Right Kidney: Normal size of the right kidney. The right kidney measures 10.6 cm x 5.9 cm x 5.5 cm. Normal renal cortex. The right cortex measures 2.0 cm. There is no demonstrated renal mass or cyst. There is no right hydronephrosis. US/Abdomen Limited IMPRESSION: Mild hepatomegaly and fatty infiltration of the liver. Electronically Signed: Zeus Nguyen MD at 8:55 EDT ,
== END | disposition home or self-care (01) ==
PROVIDERS: PCP Family Medicine; Referring Provider Family Medicine; Visit Provider Family Medicine
DX: K76.0 Fatty (change of) liver, not elsewhere classified (principal); R16.0 Hepatomegaly, not elsewhere classified
CPT/HCPCS: 76705; 76981

== ENCOUNTER → 2022-05-13 | Outpatient (CLI) | payer OTHER, SELFPAY ==
[2022-05-13 15:55] LABS: Hemoglobin A1c 5.4 % (3.8-5.6)
[2022-05-13 15:57] LABS: GGTP 108 U/L (15-85); Thyroid Stim Hormone (TSH) 1.59 uIU/mL (0.358-3.74)
[2022-05-14 08:56] LABS: Hepatitis B Surface Antibody Reactive; Hepatitis C Antibody Non-Reactive (Nonreactive)
[2022-05-15 15:42] LABS: Hepatitis A AB, Total Negative (Negative)
[2022-05-15 16:25] LABS: ANTINUCLEAR ANTIBODIES DIRECT Negative (Negative)
== END | disposition home or self-care (01) ==
LOC: MFPLAB 11:57
PROVIDERS: PCP Family Medicine; Referring Provider Family Medicine; Visit Provider Family Medicine
DX: K76.0 Fatty (change of) liver, not elsewhere classified (principal)
CPT/HCPCS: 82977; 83036; 84443; 86038; 86706; 86708; 86803

== ENCOUNTER → 2022-05-28 | Outpatient (CLI) | payer OTHER, SELFPAY ==
--- NOTE | 2022-05-28 11:54 | RAD_ITS ---
STUDY: X-RAY CHEST REASON FOR EXAM: Male, 62 years old. DYSPNEA TECHNIQUE: PA and lateral views of the chest. COMPARISON: Comparison is made with prior study dated 03/10/2021. FINDINGS: There is evidence of a 10% right pneumothorax. Normal size heart. Normal mediastinum and juan antonio. Normal visualized pulmonary arteries. Normal visualized aortic arch and descending thoracic aorta. There is demineralization of the osseous structures. Normal visualized ribs, clavicles, and shoulders. There is no demonstrated abnormality of the visualized soft tissue structures of the upper abdomen. RAD/Chest PA and Lateral IMPRESSION: 10% right pneumothorax. Electronically Signed: Zues Nguyen MD at 13:08 EDT ,
== END | disposition home or self-care (01) ==
PROVIDERS: PCP Family Medicine; Referring Provider Internal Medicine Pulmonary Disease; Visit Provider Internal Medicine Pulmonary Disease
DX: R06.09 Other forms of dyspnea (principal)
CPT/HCPCS: 71046

== ENCOUNTER → 2022-09-03 | Outpatient (CLI) | payer OTHER, SELFPAY ==
[2022-09-03 13:18] LABS: Vitamin D,25 Hydroxy 26.8 ng/mL
[2022-09-03 13:22] LABS: ALB/GLOB Ratio 1.2 RATIO (0.9-2.4); AST(SGOT) 56 U/L (15-37); Alanine Aminotransfer ALT/SGPT 87 U/L (16-61); Albumin, Serum 3.9 g/dL (3.2-5.0); Alkaline Phosphatase 66 U/L (45-117); Anion Gap 12 (5-15); BUN 16 mg/dL (7-18); BUN/Creat Ratio 18.7 RATIO (10-20); Calcium,Total 8.9 mg/dL (8.5-10.1); Chloride 105 mmol/L (98-107); Cholesterol 227 mg/dL (200); Creatinine, Serum 0.85 mg/dL (0.70-1.30); EST Glomerular Filtration Rate 97 mL/min (>60); Est Glom Filt Rate - Afr Amer 117 mL/min (>60); GGTP 173 U/L (15-85); Globulin 3.2 g/dL (2.2-4.2); Glucose 91 mg/dL (74-106); High Density Lipoprotein 48 mg/dL; PSA,Total - Annual Screen 0.57 ng/mL (0.00-4.00); Potassium 3.9 mmol/L (3.5-5.1); Protein, Total 7.1 g/dL (6.4-8.2); Sodium Level 141 mmol/L (136-145); Triglycerides 483 mg/dL
== END | disposition home or self-care (01) ==
LOC: MFPLAB 10:31
PROVIDERS: PCP Family Medicine; Visit Provider Family Medicine
DX: E78.5 Hyperlipidemia, unspecified (principal); K76.0 Fatty (change of) liver, not elsewhere classified; Z12.5 Encounter for screening for malignant neoplasm of prostate; R53.83 Other fatigue
CPT/HCPCS: 36415; 80053; 80061; 82306; 82977; 84153; 84403; G0103

== ENCOUNTER → 2023-09-08 | Outpatient (CLI) | payer OTHER, SELFPAY ==
[2023-09-08 10:41] LABS: Vitamin D,25 Hydroxy 52.2 ng/mL
[2023-09-08 10:48] LABS: GGTP 57 U/L (15-85)
== END | disposition home or self-care (01) ==
LOC: MTLAB 09:20
PROVIDERS: PCP Family Medicine; Referring Provider Family Medicine; Visit Provider Family Medicine
DX: E55.9 Vitamin D deficiency, unspecified (principal); K76.0 Fatty (change of) liver, not elsewhere classified
CPT/HCPCS: 36415; 82306; 82977

== ENCOUNTER → 2024-08-18 | Outpatient (CLI) | payer OTHER, SELFPAY ==
[2024-08-18 12:25] LABS: Absolute Lymphocyte Count 1.88 X10^3/uL (0.83-4.51); Absolute Neutrophil Count 3.3 X10^3/uL (2.0-7.7); Basophil# 0.05 X10^3/uL; Basophil% 0.8 % (0-1); Eosinophil# 0.21 X10^3/uL; Eosinophils% 3.5 % (0-5); Hematocrit 42.1 % (40-54); Lymphocyte # 1.88 X10^3/ul (0.83-4.51); Lymphocyte % 31.6 % (19-41); Mean Corp Hgb Conc 33.3 g/dL (32-36); Mean Corpuscular Hgb 30.6 pg (27.0-32.0); Mean Corpuscular Volume 92.1 fL (80-94); Mean Platelet Vol. 11.2 fl (6.2-12.0); Monocyte# 0.44 X10^3/uL; Monocyte% 7.4 % (0-10); NRBC Flagged by Analyzer 0 % (0-5); Neutrophil # 3.34 X10^3/uL (2.7-7.7); Neutrophil % 56.2 % (47-70); Platelet Count 180 K/mm3 (150-450); RBC Distribution Width CV 12.9 % (11.6-14.6); RBC Distribution Width SD 43.2 fl (35.1-43.9); Red Blood Count 4.57 M/mm3 (4.6-6.2)
[2024-08-18 12:49] LABS: ALB/GLOB Ratio 1.2 RATIO (0.9-2.4); AST(SGOT) 33 U/L (15-37); Alanine Aminotransfer ALT/SGPT 55 U/L (16-61); Albumin, Serum 4.1 g/dL (3.2-5.0); Alkaline Phosphatase 75 U/L (45-117); Anion Gap 9 (5-15); BUN 23 mg/dL (7-18); BUN/Creat Ratio 18.7 RATIO (10-20); Calcium,Total 9.2 mg/dL (8.5-10.1); Chloride 104 mmol/L (98-107); Cholesterol 189 mg/dL (200); Creatinine, Serum 1.23 mg/dL (0.70-1.30); EST Glomerular Filtration Rate 63 mL/min (>60); Est Glom Filt Rate - Afr Amer 76 mL/min (>60); Globulin 3.5 g/dL (2.2-4.2); Glucose 107 mg/dL (74-106); High Density Lipoprotein 53 mg/dL; Potassium 4.4 mmol/L (3.5-5.1); Protein, Total 7.6 g/dL (6.4-8.2); Sodium Level 136 mmol/L (136-145); Triglycerides 105 mg/dL; Very Low Density Lipoprotein 21 mg/dL (5-40)
[2024-08-18 14:43] LABS: Vitamin B12 777 pg/mL (211-911); Vitamin D,25 Hydroxy 40.6 ng/mL
== END | disposition home or self-care (01) ==
LOC: MFPLAB 09:24
PROVIDERS: PCP Family Medicine; Visit Provider Family Medicine
DX: E78.5 Hyperlipidemia, unspecified (principal); R53.83 Other fatigue; M10.9 Gout, unspecified; E55.9 Vitamin D deficiency, unspecified; Z12.5 Encounter for screening for malignant neoplasm of prostate
CPT/HCPCS: 36415; 80053; 80061; 82306; 82607; 84153; 84403; 84443; 84550; 85025; G0103

== ENCOUNTER → 2024-12-24 | Outpatient (CLI) | payer OTHER, SELFPAY ==
--- NOTE | 2024-12-24 07:32 | MRI_ITS ---
PROCEDURE: SPINE LUMBAR (ROUTINE) 12/24/2024 REASON FOR EXAM: PAIN TECHNIQUE: Multiplanar and multisequence images were obtained without IV contrast administration. Axial and sagittal T1 and T2 weighted images were obtained. Fat suppressed images were also obtained. COMPARISON: None. FINDINGS: S shaped degenerative scoliosis. Moderate diffuse spondylosis. Moderate multilevel degenerative disc disease. There is normal signal intensity from the visualized bone marrow without evidence of replacement or acute fracture. The conus is unremarkable. Normal lumbar lordosis. Evaluation of the individual levels revealed the following: L5-S1: Grade 1 anterolisthesis measuring 3.3 mm. Mild diffuse disc bulge. Bilateral facet joint arthropathy and ligamentum flavum hypertrophy. The spinal canal is not narrowed. There is minimal right and mild left neural foraminal narrowing. L4-5: Mild diffuse disc bulge. Bilateral facet joint arthropathy and ligamentum flavum hypertrophy. The spinal canal is not narrowed. Mild bilateral neural foraminal narrowing. L3-4: Mild diffuse disc bulge. Bilateral facet joint arthropathy and ligamentum flavum hypertrophy. The spinal canal is mildly narrowed. There is mild bilateral neural foraminal narrowing. L2-3: Mild diffuse disc bulge. Bilateral facet joint arthropathy and ligamentum flavum hypertrophy. The spinal canal is not narrowed. Mild bilateral neural foraminal narrowing. L1-2: Grade 1 retrolisthesis measuring 3.2 mm. Mild diffuse disc bulge. The spinal canal is not narrowed. Mild bilateral neural foraminal narrowing. T12-L1: Mild diffuse disc bulge. The spinal canal is not narrowed. Mild bilateral neural foraminal narrowing. T11-T12: Mild diffuse disc bulge. The spinal canal is not narrowed. Mild bilateral neural foraminal narrowing. Normal visualized paraspinous soft tissue structures. MRI/Spine Lumbar (Routine) IMPRESSION: Spondylosis. Degenerative disc disease. [facility]
== END | disposition home or self-care (01) ==
PROVIDERS: PCP Family Medicine; Referring Provider Student in an Organized Health Care Education/Training Program; Visit Provider Student in an Organized Health Care Education/Training Program
DX: M51.362 Other intervertebral disc degeneration, lumbar region with discogenic back pain and lower extremity pain (principal)
CPT/HCPCS: 72148